=== PATIENT | female | born 1985 | race Caucasian/White ===

== ENCOUNTER 2018-02-02 10:28 | Emergency (ER) | payer SELFPAY ==
[~2018-02-02] VITALS: Ht 165.1 cm; Wt 87.0 kg
[~2018-02-02 10:28] MED LIST: ALBU17I INH; PRED20 PO
[2018-02-02 10:33] VITALS: BP 125/66; PULSE 102; RESP 16; TEMP 98.6; O2SAT 98
[2018-02-02] MEDS ORDERED: AMOX500C PO (11:04)
--- NOTE | 2018-02-02 11:04 | PD ---
HPI Chief Complaint: Oral / Dental Pain or Problem Time Seen by Provider: 10:53 Travel History International Travel<30 days: No Contact w/Intl Traveler<30days: No Traveled to known affect area: No History of Present Illness HPI 33-year-old female here with right sided facial pain and swelling 2 days. She reports she has a decayed and fractured tooth at the site of pain. Pain is throbbing, constant, nonradiating. No fevers or chills. No difficulty swallowing. Symptom severity is moderate. Aggravated by hot and cold liquids. Slightly relieved with OTC Tylenol and ibuprofen. PFSH Past Medical History Medical History: Denies Significant Hx Diminished Hearing: No Respiratory: Yes (BRONCHITIS) Pneumonia: Yes Influenza Vaccination: No ?: Not LMP: 01/19 : 3 Para: 1 : 1 Ectopic : Yes Tubal Ligation: Yes (LEFT TUBE LIGATION SECONDARY TO ECTOPIC ) Past Surgical History Section: Yes Gynecologic Surgery: Yes (colposcopy in sep 18) Social History Alcohol Use: No Tobacco Use: Yes (1 PPD) Substance Use: No Allergies-Medications (Allergen,Severity, Reaction): Coded Allergies: No Known Allergies (Verified Adverse Reaction, Unknown, 02/02/18) Reported Meds & Prescriptions Reported Meds & Active Scripts Active No Active Prescriptions or Reported Medications Review of Systems Except as stated in HPI: all other systems reviewed are Neg General / Constitutional: No: Fever Eyes: No: Visual changes HENT: No: Headaches Cardiovascular: No: Chest Pain or Discomfort Respiratory: No: Shortness of Breath Gastrointestinal: No: Abdominal Pain Genitourinary: No: Dysuria Physical Exam Narrative GENERAL: Alert and well-appearing 33-year-old female. SKIN: Warm and dry. HEAD: Normocephalic. Mild right facial swelling EYES: No scleral icterus. No injection or drainage. MOUTH: Decayed and fractured second bicuspid with surrounding gum erythema. No swelling to the floor the mouth. Uvula is midline. Airways patent. NECK: Supple, trachea midline. No lymphadenopathy. CARDIOVASCULAR: Regular rate and rhythm without murmurs, gallops, or rubs. RESPIRATORY: Breath sounds equal bilaterally. No accessory muscle use. GASTROINTESTINAL: Abdomen soft, non-tender, nondistended. MUSCULOSKELETAL: No cyanosis, or edema. Data Data Last Documented VS Vital Signs Date Time Temp Pulse Resp B/P (MAP) Pulse Ox O2 Delivery O2 Flow Rate FiO2 02/02/18 10:33 98.6 102 16 125/66 (85) 98 MDM Medical Decision Making Medical Screen Exam Complete: Yes Emergency Medical Condition: Yes Differential Diagnosis Dental abscess, dental caries, periodontal disease Narrative Course 33-year-old female here with dental infection. She is requesting free antibiotics at [facility] as she has financial difficulties. Diagnosis Primary Impression: Dental infection Referrals: Dentist Additional Instructions: Antibiotics as directed. Follow up with your dentist. Return if you have new or worsening symptoms Scripts Amoxicillin (Amoxicillin) 500 Mg Cap 500 MG PO TID for Infection for 10 Days, CAP 0 Refills Prov: Aleida Cano 02/02/18 Disposition: 01 DISCHARGE HOME Condition: Stable Aleida Cano Feb 02, 2018 11:04
== END 2018-02-02 11:10 | disposition home or self-care (01) ==
LOC: PHEFT 10:28
DX: K04.7 Periapical abscess without sinus (principal); F17.200 Nicotine dependence, unspecified, uncomplicated
CPT/HCPCS: 99283